=== PATIENT | male | born 1980 | race Caucasian/White ===

== ENCOUNTER 2024-03-10 12:31 | Emergency (ER) | payer BC ==
[~2024-03-10] VITALS: Ht 177.8 cm; Wt 86.4 kg
[2024-03-10 12:31] VITALS: TEMP 97.7
[2024-03-10 13:08] LABS: BASO % 0.4 % (0.0-2.0); EOS # 0.1 K/mm3 (0.0-0.7); EOS % 1.1 % (0.0-4.0); GRAN # 4.4 K/mm3 (1.4-6.5); GRAN % 54.8 % (42.2-75.2); HEMATOCRIT 46.9 % (42.0-52.0); HEMOGLOBIN 16.3 g/dl (13.5-18.0); LYMPH # 2.8 K/mm3 (1.2-3.4); LYMPH % 34.8 % (20.0-51.0); MEAN CELL VOLUME 89 fl (80.0-100.0); MEAN CORPUSCULAR HEMOGLOBIN 31 pg (27-31); MEAN CORPUSCULAR HGB CONC 35 g/dl (33.0-37.0); MONO # 0.6 K/mm3 (0.1-0.6); MONO % 7.7 % (1.7-9.3); PLATELET COUNT 212 K/mm3 (130-400); RED BLOOD COUNT 5.28 M/mm3 (4.20-5.60); REDCELL DISTRIBUTION WIDTH-CV 12.7 % (11.5-14.5)
[2024-03-10 13:24] LABS: ALBUMIN 4.3 g/dL (3.5-5.0); CALCIUM 9.2 mg/dL (8.4-10.2); CREATININE, serum 1.03 mg/dL (0.72-1.25); POTASSIUM 3.5 mEq/L (3.5-4.5); TOTAL PROTEIN 7.1 g/dl (6.2-8.1)
[2024-03-10 13:44] LABS: PROLACTIN 41.4 ng/mL (3.46-19.40)
[2024-03-10] MEDS ORDERED: levETIRAcetam 1,000 MG in Syringe 1 EACH IV ONE (13:45)
[2024-03-10 19:18] VITALS: BP 115/72; PULSE 55
== END 2024-03-10 19:18 | disposition short-term general hospital (02) ==
LOC: COL.ER 12:31
PROVIDERS: Personal Emergency Response Attendant
DX: C71.1 Malignant neoplasm of frontal lobe (principal)
CPT/HCPCS: J1953

== ENCOUNTER → 2024-05-27 | Outpatient (CLI) | payer BC ==
[~2024-05-27] MED LIST: Gadoterate 20 ML VIAL IV ONE; KEPPRA 500MG500 MG PO; ROCEPHIN 2GM VIAL21 IJ; TYLENOL 500MG500 MG PO
== END ==
LOC: COL.RAD 12:08
DX: C71.9 Malignant neoplasm of brain, unspecified (principal); Z98.890 Other specified postprocedural states
CPT/HCPCS: A9575